=== PATIENT | male | born 1980 | race Caucasian/White ===

== ENCOUNTER 2021-05-21 21:48 | Observation (INO) ==
[2021-05-21] MEDS ORDERED: Ketorolac 30 MG/ML VIAL IVP ONE (22:39)
[2021-05-21 22:52] LABS: Basophils % 0.3 %; Eosinophils # 0.6 K/mcL (0.0-0.6); Eosinophils % 4.4 %; Hemoglobin 14.9 g/dL (12.9-16.9); Immature Granulocytes % 0.4 % (0-4); Lymphocytes # 2.5 K/mcL (0.6-4.6); Lymphocytes % 17.8 %; Mean Corpuscular HGB Conc 33.9 g/dL (31.6-35.5); Mean Corpuscular Hemoglobin 30.8 pg (28.0-33.3); Mean Corpuscular Volume 90.9 fL (83.0-100.0); Mean Platelet Volume 8.4 fL (9.4-12.4); Monocytes # 1.7 K/mcL (0.0-1.3); Monocytes % 12.6 %; Neutrophils # 8.9 K/mcL (1.6-8.9); Platelet Count 290 K/mcL (140-400); Red Blood Count 4.84 M/mcL (4.19-5.50); Red Cell Distribution Width 12.4 % (11.5-14.5); Segmented Neutrophils % 64.5 %; White Blood Count 13.8 K/mcL (4.3-11.1)
[2021-05-21 23:10] LABS: BUN/Creatinine Ratio 10 (6-26); Blood Urea Nitrogen 13 mg/dL (6-20); Calcium 9.4 mg/dL (8.6-10.3); Carbon Dioxide 27 mEq/L (23-29); Chloride 105 mEq/L (98-107); Glucose 97 mg/dL (70-105); Osmolality,Calculated 286 (280-300); Sodium 138 mEq/L (136-145); eGFR For African Americans > 60 (> 60); eGFR For Non-African Americans > 60 (> 60)
[2021-05-21] MEDS ORDERED: *HR* HYDROmorphone (PF) 1 MG/ML SYRINGE IVP ONE (23:44)
[2021-05-21] MEDS ORDERED: Ondansetron 4 MG/2 ML VIAL IVP ONE (23:45)
[2021-05-21 23:52] LABS: Bilirubin,Urine Negative (Negative); Blood,Urine Negative (Negative); Clarity,Urine Clear (Clear); Color,Urine Light-Yellow (Yellow); Glucose,Urine (UA) Normal (Normal); Ketones,Urine Negative (Negative); Leukocyte Esterase,Urine Negative (Negative); Nitrite,Urine Negative (Negative); PH,Urine 6.5 pH Units (5.0-8.0); Protein,Urine Trace mg/dL (Neg-Trace); Specific Gravity,Urine 1.029 (1.010-1.025); Urobilinogen,Urine Normal (Normal)
[2021-05-22] MEDS ORDERED: Melatonin 3 MG TABLET PO PRN ×2 (00:45→16:18)
[2021-05-22] MEDS ORDERED: Ondansetron ODT 4 MG TAB.RAPDIS SL PRN ×2 (00:45→16:18)
[2021-05-22] MEDS ORDERED: 0.9 % Sodium Chloride 1,000 ML IVC SCH (00:45)
[2021-05-22] MEDS ORDERED: Naloxone 0.4 MG/ML INJ IVP PRN ×2 (00:45→16:18)
[2021-05-22] MEDS ORDERED: Acetaminophen 325 MG TABLET PO PRN ×2 (00:45→16:18)
[2021-05-22] MEDS ORDERED: *HR* Dextrose 50 % in Water (Syg) 50 ML SYRINGE IVP PRN ×2 (00:48→16:18)
[2021-05-22] MEDS ORDERED: D5% in Water 1,000 ML IVC PRN ×2 (00:48→16:18)
[2021-05-22] MEDS ORDERED: Dextrose 4 GM Chewable Tablets PO PRN ×4 (00:48→16:18)
[2021-05-22] MEDS ORDERED: Nicotine 21 MG PATCH.TD24 TD SCH (01:15)
[2021-05-22 05:42] LABS: Hematocrit 40.2 % (37.5-50.1); Hemoglobin 13.8 g/dL (12.9-16.9); Mean Corpuscular HGB Conc 34.3 g/dL (31.6-35.5); Mean Corpuscular Hemoglobin 31.3 pg (28.0-33.3); Mean Corpuscular Volume 91.2 fL (83.0-100.0); Mean Platelet Volume 8.9 fL (9.4-12.4); Platelet Count 277 K/mcL (140-400); Red Blood Count 4.41 M/mcL (4.19-5.50); Red Cell Distribution Width 12.5 % (11.5-14.5); White Blood Count 12.1 K/mcL (4.3-11.1)
[2021-05-22 05:46] LABS: INR 1.2; Prothrombin Time 12.9 Seconds (9.4-12.1)
[2021-05-22 05:48] LABS: Activated Partial Thrombo Time 33.8 Seconds (26.0-36.0)
[2021-05-22 06:08] LABS: BUN/Creatinine Ratio 10 (6-26); Blood Urea Nitrogen 13 mg/dL (6-20); Calcium 8.9 mg/dL (8.6-10.3); Carbon Dioxide 27 mEq/L (23-29); Chloride 104 mEq/L (98-107); Chol/HDL Ratio 4.5 (0-4.9); Cholesterol 154 mg/dL (< 200); Glucose 93 mg/dL (70-105); HDL Cholesterol 34 mg/dL (40-59); LDL Cholesterol,Calculated 94 mg/dL (< 100); Osmolality,Calculated 284 (280-300); Phosphorous 2.9 mg/dL (2.7-4.5); Potassium 3.8 mEq/L (3.5-5.1); Sodium 137 mEq/L (136-145); Triglycerides 130 mg/dL (< 150); eGFR For African Americans > 60 (> 60); eGFR For Non-African Americans 58 (> 60)
[2021-05-22] MEDS ORDERED: CeFAZolin Syr 2,000MG/20 ML 2,000 MG/20 ML SYRINGE IVPB ONE (07:29)
[2021-05-22] MEDS ORDERED: *HR* HYDROmorphone 2 MG/ML SYRINGE IVP PRN ×2 (10:33→17:24)
[2021-05-22 13:12] LABS: Adenovirus Not Detected (Not Detect); Bordetella Pertussis Not Detected (Not Detect); Chlamydophila pneumoniae Not Detected (Not Detect); Coronavirus 229E Not Detected (Not Detect); Coronavirus HKU1 Not Detected (Not Detect); Coronavirus NL63 Not Detected (Not Detect); Coronavirus OC43 Not Detected (Not Detect); Human Metapneumovirus Not Detected (Not Detect); Human Rhinovirus/Enterovirus Not Detected (Not Detect); Influenza A Subtype 2009 H1 Not Detected (Not Detect); Influenza B Not Detected (Not Detect); Mycoplasma pneumoniae Not Detected (Not Detect); Parainfluenza Virus 1 Not Detected (Not Detect); Parainfluenza Virus 2 Not Detected (Not Detect); Parainfluenza Virus 3 Not Detected (Not Detect); Parainfluenza Virus 4 Not Detected (Not Detect); Respiratory Syncytial Virus Not Detected (Not Detect); SARS-CoV-2 Not Detected (Not Detect)
[2021-05-22] MEDS ORDERED: *HR* FentaNYL (PF) 100 MCG/2 ML VIAL IVP PRN (14:22)
[2021-05-22] MEDS ORDERED: Isovue-300 50ML VIAL ONE (14:23)
[2021-05-22] MEDS ORDERED: *HR* Midazolam HCl 2 MG/2 ML VIAL ONE (14:27)
[2021-05-22] MEDS ORDERED: Ondansetron 4 MG/2 ML VIAL ONE (14:27)
[2021-05-22] MEDS ORDERED: Lidocaine -MPF 2% 2 ML VIAL ONE ×2 (14:27→14:28)
[2021-05-22] MEDS ORDERED: *HR* Propofol 200 MG/20 ML VIAL IVP ONE (14:28)
[2021-05-22] MEDS ORDERED: Ketorolac 30 MG/ML VIAL ONE (15:18)
[2021-05-22] MEDS: 0.9 % Sodium Chloride 1,000 ML IVC SCH (16:44)
[2021-05-22] MEDS ORDERED: *HR* OxyCODONE/APAP 10/325 TABLET PO PRN (17:42)
[2021-05-22] MEDS ORDERED: *HR* OxyCODONE/APAP 5/325 TABLET PO PRN (17:42)
[2021-05-23] MEDS ORDERED: Nicotine 21 MG PATCH.TD24 TD SCH (01:15)
[2021-05-23 06:59] VITALS: TEMP 98
[2021-05-23 09:51] LABS: BUN/Creatinine Ratio 18 (6-26); Blood Urea Nitrogen 17 mg/dL (6-20); Calcium 9.5 mg/dL (8.6-10.3); Carbon Dioxide 25 mEq/L (23-29); Chloride 103 mEq/L (98-107); Glucose 183 mg/dL (70-105); Osmolality,Calculated 290 (280-300); Potassium 3.9 mEq/L (3.5-5.1); Sodium 137 mEq/L (136-145); eGFR For African Americans > 60 (> 60); eGFR For Non-African Americans > 60 (> 60)
[2021-05-23 11:14] VITALS: BP 147/80; PULSE 73; O2SAT 92
[2021-05-23] MEDS: 0.9 % Sodium Chloride 1,000 ML IVC SCH (11:52)
[2021-05-23] MEDS ORDERED: Moderna Covid-19 Vaccine 100MCG/0.5mL IM ONE (12:21)
== END 2021-05-23 16:02 | disposition home or self-care (01) ==
LOC: 3ANU 21:48 → EMEROOARM 21:48 → SUATTDRO 05-22 00:53 → 3ANU 05-22 01:40
PROVIDERS: ADMIT Family Medicine; ATTEND Internal Medicine